=== PATIENT | female | born 1930 | race Hispanic/Latino ===

== ENCOUNTER → 2017-09-29 | Outpatient (CLI) | payer OTHER, MEDICARE | END | disposition home or self-care (01) | LOC: OIH 12:46 | PROVIDERS: ATTEND Internal Medicine | DX: S22.31XD Fracture of one rib, right side, subsequent encounter for fracture with routine healing (principal); M85.88 Other specified disorders of bone density and structure, other site; X58.XXXD Exposure to other specified factors, subsequent encounter | CPT/HCPCS: 71100 ==

== ENCOUNTER → 2018-04-27 | Outpatient (CLI) | payer OTHER, MEDICARE | END | disposition home or self-care (01) | LOC: OIH 08:51 | PROVIDERS: ATTEND Internal Medicine | DX: J84.10 Pulmonary fibrosis, unspecified (principal); I10 Essential (primary) hypertension | CPT/HCPCS: 71046 ==

== ENCOUNTER → 2018-05-14 | Outpatient (CLI) | payer OTHER, MEDICARE | END | disposition home or self-care (01) | LOC: OIH 10:09 | PROVIDERS: ATTEND Internal Medicine | DX: J84.9 Interstitial pulmonary disease, unspecified (principal) | CPT/HCPCS: 71046 ==

== ENCOUNTER 2018-08-24 08:07 | Day surgery (SDC) | payer OTHER, MEDICARE ==
[~2018-08-24] VITALS: Ht 147.3 cm; Wt 43.5 kg
[2018-08-24] VITALS (7 sets, daily range): BP systolic 92–150; BP diastolic 40–52
[~2018-08-24 08:07] MED LIST: SODIUM CHLORIDE 0.9% 1000ML 1,000 ML IV ONE
[2018-08-24] MEDS ORDERED: UMEC1DIS IH (09:32)
[2018-08-24] MEDS ORDERED: NAPR-1180 PO (09:32)
[2018-08-24] MEDS ORDERED: FERR324T4 PO (09:32)
[2018-08-24] MEDS ORDERED: PANT40TA25 PO (09:32)
[2018-08-24] MEDS ORDERED: FOLI1TAB15 PO (09:32)
[2018-08-24] MEDS ORDERED: METH2.5T6 PO (09:32)
[2018-08-24] MEDS ORDERED: PRED5TAB PO (09:32)
[2018-08-24] MEDS ORDERED: PROPOFOL 10 MG/ML 20ML VIAL IV ONE (11:57)
[2018-08-24] MEDS ORDERED: LIDOCAINE HCL 1% 20 ML VIAL ONE (11:57)
--- NOTE | 2018-08-24 12:20 | NUR ---
DC PT DC HOME VIA WC, NO DISTRESS NOTED. DENIED ANY PAIN OR DISCOMFORTS. ACCOMPANIED BY CAREGIVER RAMILA
== END 2018-08-24 12:20 | disposition home or self-care (01) ==
LOC: DAH 08:07 → ENDO 08:07
PROVIDERS: ATTEND Internal Medicine
DX: K29.50 Unspecified chronic gastritis without bleeding (principal); B96.81 Helicobacter pylori [H. pylori] as the cause of diseases classified elsewhere; K31.89 Other diseases of stomach and duodenum; K22.8 Other specified diseases of esophagus; K22.70 Barrett's esophagus without dysplasia; J44.9 Chronic obstructive pulmonary disease, unspecified; R13.10 Dysphagia, unspecified; F32.9 Major depressive disorder, single episode, unspecified; G62.9 Polyneuropathy, unspecified; D64.9 Anemia, unspecified; M54.16 Radiculopathy, lumbar region; M19.90 Unspecified osteoarthritis, unspecified site; M81.0 Age-related osteoporosis without current pathological fracture; Z79.52 Long term (current) use of systemic steroids; Z79.899 Other long term (current) drug therapy; Z96.642 Presence of left artificial hip joint
CPT/HCPCS: 43239; A4606; J2704; J7030

== ENCOUNTER → 2018-09-07 | Outpatient (CLI) | payer OTHER, MEDICARE ==
[~2018-09-07] MED LIST changes: +FERR324T4 PO; +FOLI1TAB15 PO; +METH2.5T6 PO; +NAPR-1180 PO; +PANT40TA25 PO; +PRED5TAB PO; -SODIUM CHLORIDE 0.9% 1000ML 1,000 ML IV ONE; +UMEC1DIS IH
== END | disposition home or self-care (01) ==
LOC: RAH 09:00
PROVIDERS: ATTEND Internal Medicine Gastroenterology
DX: K21.9 Gastro-esophageal reflux disease without esophagitis (principal); K22.8 Other specified diseases of esophagus; Q39.6 Congenital diverticulum of esophagus
CPT/HCPCS: 74240

== ENCOUNTER → 2019-05-08 | Outpatient (CLI) | payer OTHER, MEDICARE | END | disposition home or self-care (01) | LOC: SHCH 10:47 | PROVIDERS: ATTEND Internal Medicine Cardiovascular Disease | DX: R06.09 Other forms of dyspnea (principal); R55 Syncope and collapse; R00.2 Palpitations | CPT/HCPCS: 93306 ==

== ENCOUNTER → 2019-07-03 | Outpatient (CLI) | payer OTHER, MEDICARE | END | disposition home or self-care (01) | LOC: OIH 12:43 | PROVIDERS: ATTEND Internal Medicine | DX: M43.8X6 Other specified deforming dorsopathies, lumbar region (principal); M47.26 Other spondylosis with radiculopathy, lumbar region; M25.78 Osteophyte, vertebrae | CPT/HCPCS: 72100 ==

== ENCOUNTER → 2020-01-28 | Outpatient (CLI) | payer OTHER, MEDICARE ==
[~2020-01-28] MED LIST changes: -PANT40TA25 PO; +PANT40TA54 PO
== END | disposition home or self-care (01) ==
LOC: OIH 08:45
PROVIDERS: ATTEND Internal Medicine
DX: J84.10 Pulmonary fibrosis, unspecified (principal); M81.0 Age-related osteoporosis without current pathological fracture; M40.294 Other kyphosis, thoracic region
CPT/HCPCS: 71046; 72070

== ENCOUNTER → 2020-03-10 | Outpatient (CLI) | payer OTHER, MEDICARE | END | disposition home or self-care (01) | LOC: RAH 09:03 | PROVIDERS: ATTEND Internal Medicine Gastroenterology | DX: K22.5 Diverticulum of esophagus, acquired (principal); K22.8 Other specified diseases of esophagus | CPT/HCPCS: 74220 ==

== ENCOUNTER → 2020-04-22 | Outpatient (CLI) | payer OTHER, MEDICARE | END | disposition home or self-care (01) | LOC: OIH 09:31 | PROVIDERS: ATTEND Internal Medicine | DX: J47.9 Bronchiectasis, uncomplicated (principal); M51.35 Other intervertebral disc degeneration, thoracolumbar region; J84.10 Pulmonary fibrosis, unspecified; K59.04 Chronic idiopathic constipation; I10 Essential (primary) hypertension; I42.0 Dilated cardiomyopathy | CPT/HCPCS: 71046; 74018 ==